=== PATIENT | male | born 2000 | race Caucasian/White ===

== ENCOUNTER 2019-10-06 14:41 | Emergency (ER) | payer MEDICAID, OTHER ==
[~2019-10-06] VITALS: Ht 167.6 cm; Wt 91.8 kg
--- NOTE | 2019-10-06 15:10 | REP ---
Clinical: Chest pain . Comparison: None . Technique: PA and lateral. Findings: The mediastinum and cardiac silhouette are normal. The lung guillen are clear and without acute consolidation, effusion, or pneumothorax. The skeletal structures are intact and normal. Impression: 1. No acute cardiopulmonary process. Electronically Signed by Michael Mckeon MD 10/06/2019 03:01 P
[2019-10-06] MEDS ORDERED: NAPR-837 PO (16:24)
[2019-10-06] MEDS ORDERED: BENZ200C70 PO (16:24)
[2019-10-06 17:21] VITALS: BP 162/83
--- NOTE | 2019-10-06 20:07 | ECGEPIP ---
[facility] - ED Test Date: 2019-10-06 Pat Name: ANUP MEADOWS Department: Room: - Gender: Male Client Care Coordinator: ISAAC : 2000 Requested By: Columba Mcclain Order Number: [id number] Reading MD: Columba Mcclain Measurements Intervals [place] Rate: 76 P: 52 WV: 108 QRS: 69 QRSD: 94 T: 52 QT: 343 QTc: 386 Interpretive Statements SINUS RHYTHM WITH SINUS ARRHYTHMIA WITH SHORT WV INTERVAL NO PRIOR Electronically Signed on 10-06-2019 20:07:16 EST by Columba Mcclain
== END 2019-10-06 17:23 | disposition home or self-care (01) ==
LOC: M ED 14:41
DX: R07.1 Chest pain on breathing (principal); W01.10XA Fall on same level from slipping, tripping and stumbling with subsequent striking against unspecified object, initial encounter; Y92.9 Unspecified place or not applicable; Y93.9 Activity, unspecified; Y99.9 Unspecified external cause status; F17.200 Nicotine dependence, unspecified, uncomplicated

== ENCOUNTER 2020-03-08 13:22 | Emergency (ER) | payer OTHER ==
[~2020-03-08] VITALS: Ht 170.2 cm; Wt 97.3 kg
[~2020-03-08 13:22] MED LIST: BENZ200C70 PO; NAPR-837 PO
[2020-03-08] MEDS ORDERED: ONDA-83 PO (13:28)
[2020-03-08] MEDS ORDERED: MORPHINE 2 MG/ML 1ML VIAL (J2270) IV ONE (14:00)
[2020-03-08] MEDS ORDERED: NS 1,000 ML IV ONE (14:00)
[2020-03-08] MEDS ORDERED: PANTOPRAZOLE 40MG VIAL (C9113 PER 1) IV ONE (14:00)
[2020-03-08] MEDS ORDERED: ONDANSETRON 4MG/2ML VIAL IV ONE ×2 (14:00→18:15)
[2020-03-08 14:05] LABS: BASO % 0.4 % (0.0-1.0); EOS # 0.1 10^3/uL (0.0-0.5); EOS % 0.8 % (0.0-3.0); HEMATOCRIT 49.9 % (42.0-52.0); HEMOGLOBIN 17.6 g/dl (13.5-17.5); LYMPH # 2.2 10^3/uL (1.5-5.0); LYMPH % 23.7 % (24.0-44.0); MEAN CORPUSCULAR HEMOGLOBIN 30.9 pg (27.0-33.0); MEAN CORPUSCULAR HGB CONC 35.3 g/dl (32.0-36.5); MEAN CORPUSCULAR VOLUME 87.5 fl (80.0-96.0); MONO # 0.8 10^3/uL (0.0-0.8); MONO % 9.2 % (0.0-5.0); NEUTROPHILS % 65.7 % (36.0-66.0); PLATELET COUNT, AUTOMATED 309 10^3/uL (150-450); WHITE BLOOD COUNT 9.1 10^3/uL (4.0-10.0)
[2020-03-08] MEDS ORDERED: ISOVUE-370 76% 100ML VIAL As Ordered ONE (14:05)
[2020-03-08 15:02] LABS: ALBUMIN 5.3 GM/DL (3.2-5.2); BILIRUBIN,DIRECT 0.2 MG/DL (0.0-0.2); BILIRUBIN,TOTAL 1.5 MG/DL (0.2-1.0); TOTAL PROTEIN 8.5 GM/DL (6.4-8.2)
[2020-03-08] MEDS ORDERED: CAPSAICIN 0.025% CR 60 GM TOP ONE (15:30)
[2020-03-08] MEDS ORDERED: HALOPERIDOL 5MG/ML VIAL (J1630 PER 1) IV ONE (16:00)
--- NOTE | 2020-03-08 16:16 | REP ---
CT ABDOMEN AND PELVIS WITH IV CONTRAST: TECHNIQUE: Axial contrast enhanced images from the lung bases to the pubic symphysis using 100 mL Isovue-370 intravenous contrast material with multiplanar reformations. Visualized lung bases are clear. The liver demonstrates focal fatty infiltration anteriorly. Otherwise, liver and gallbladder are unremarkable. Spleen is normal in size with no intrinsic abnormality. Adrenal glands are normal. No pancreatic abnormality is seen. Kidneys demonstrate no mass or hydronephrosis. There is no abdominal aortic aneurysm. There is no adenopathy. There is no free air or free fluid. No bowel wall thickening is seen. The appendix is normal. No pelvic mass is seen. Urinary bladder is not well distended and not well evaluated. IMPRESSION: No acute abnormality is detected. Electronically Signed by Winston Farooq MD 03/11/2020 12:04 P
[2020-03-08 17:40] LABS: AMPHETAMINES LEVEL URINE NEGATIVE (NEGATIVE); BARBITURATES URINE NEGATIVE (NEGATIVE); BENZODIAZEPINES URINE NEGATIVE (NEGATIVE); CANNABINOIDS URINE POSITIVE (NEGATIVE); COCAINE METABOLITE URINE NEGATIVE (NEGATIVE); METHADONE URINE NEGATIVE (NEGATIVE); OPIATES URINE POSITIVE (NEGATIVE); PHENCYCLIDINE URINE NEGATIVE (NEGATIVE)
[2020-03-08] MEDS ORDERED: OMEP40CA97 PO (17:55)
[2020-03-08] MEDS ORDERED: PROM25TA12 PO (17:55)
[2020-03-08 18:07] VITALS: BP 150/80
== END 2020-03-08 18:17 | disposition home or self-care (01) ==
LOC: M ED 13:22
DX: R10.9 Unspecified abdominal pain (principal); R11.2 Nausea with vomiting, unspecified; F17.210 Nicotine dependence, cigarettes, uncomplicated
CPT/HCPCS: 74177; 80047; 80076; 80307; 81001; 83690; 85025; 96361; 96374; 96375; 99284; C9113; J1630; J2270; J2405; Q9967

== ENCOUNTER 2023-05-01 17:03 | Emergency (ER) | payer OTHER ==
[~2023-05-01] VITALS: Ht 170.2 cm; Wt 94.8 kg
[~2023-05-01 17:03] MED LIST changes: +OMEP40CA4 PO; +ONDA-83 PO; +PROM25TA12 PO
[2023-05-01 17:04] VITALS: TEMP 98.5
[2023-05-01 18:15] LABS: BASO # 0.1 10^3/uL (0.0-0.2); BASO % 0.6 % (0.0-1.0); EOS # 0.1 10^3/uL (0.0-0.5); EOS % 1.6 % (0.0-3.0); HEMATOCRIT 46.1 % (42.0-52.0); HEMOGLOBIN 15.6 g/dl (13.5-17.5); LYMPH % 22.1 % (24.0-44.0); MEAN CORPUSCULAR HEMOGLOBIN 30.6 pg (27.0-33.0); MEAN CORPUSCULAR HGB CONC 33.8 g/dl (32.0-36.5); MEAN CORPUSCULAR VOLUME 90.6 fl (80.0-96.0); MONO # 0.8 10^3/uL (0.0-0.8); MONO % 8.4 % (2.0-8.0); PLATELET COUNT, AUTOMATED 280 10^3/uL (150-450); RED BLOOD COUNT 5.09 10^6/uL (4.30-6.10)
[2023-05-01 18:37] LABS: LIPASE 156 U/L (12-53)
[2023-05-01 18:39] LABS: ALBUMIN 4.3 G/DL (3.2-5.2); ALKALINE PHOSPHATASE 78 U/L (46-116); ALT/SGPT 64 U/L (7.0-40); AST/SGOT 32 U/L (<34); BILIRUBIN,DIRECT 0.2 MG/DL (<0.4); BILIRUBIN,TOTAL 0.9 MG/DL (0.3-1.2); BLOOD UREA NITROGEN 17 MG/DL (9-23); CALCIUM LEVEL 10.1 MG/DL (8.5-10.1); CARBON DIOXIDE LEVEL 28 MMOL/L (20-31); CHLORIDE LEVEL 102 MMOL/L (98-107); CK-MB VALUE MASS < 1.0 NG/ML (<3.6); CREATININE FOR GFR 0.94 MG/DL (0.70-1.30); GLOMERULAR FILTRATION RATE > 60.0 (>60); GLUCOSE, FASTING 81 MG/DL (60-100); POTASSIUM SERUM 4.1 MMOL/L (3.5-5.1); SODIUM LEVEL 138 MMOL/L (136-145); TOTAL PROTEIN 7.1 G/DL (5.7-8.2)
[2023-05-01 18:40] LABS: THYROID STIMULATING HORMONE 0.755 uIU/ML (0.55-4.78)
[2023-05-01 18:41] LABS: FREE T4 1.23 NG/DL (0.89-1.76)
[2023-05-01 18:44] LABS: CPK CREATINE PHOSPHOKINASE 195 U/L (46-171); MB/CK RELATIVE INDEX 0.51 (< OR =4)
[2023-05-01] MEDS ORDERED: ISOVUE-370 76% 100ML VIAL As Ordered ONE (18:44)
[2023-05-01] MEDS ORDERED: PANTOPRAZOLE 40MG VIAL IV ONE (18:45)
[2023-05-01] MEDS ORDERED: SUCRALFATE 1 GM TAB PO ONE (18:45)
[2023-05-01] MEDS ORDERED: MAALOX 30 ML SUSP *UDC PO ONE (18:45)
[2023-05-01 18:46] VITALS: BP 135/83
[2023-05-01 19:33] VITALS: O2SAT 99
[2023-05-01 19:52] LABS: CK-MB VALUE MASS < 1.0 NG/ML (<3.6)
[2023-05-01 19:53] LABS: CPK CREATINE PHOSPHOKINASE 181 U/L (46-171); MB/CK RELATIVE INDEX 0.55 (< OR =4)
== END 2023-05-01 20:04 | disposition home or self-care (01) ==
LOC: M ED 17:03
DX: R09.1 Pleurisy (principal); F17.200 Nicotine dependence, unspecified, uncomplicated; Z79.899 Other long term (current) drug therapy
CPT/HCPCS: 71045; 71275; 80048; 80076; 82550; 82553; 83690; 83880; 84439; 84443; 85025; 85379; 93005; 93041; 94760; 96374; 99285; C9113; Q9967

== ENCOUNTER 2024-11-03 20:06 | Emergency (ER) | payer OTHER ==
[~2024-11-03] VITALS: Ht 172.7 cm; Wt 96.8 kg
[2024-11-04 00:23] VITALS: BP 144/92; TEMP 97.5; O2SAT 98
[2024-11-04] MEDS ORDERED: NAPR-837 PO (01:01)
[2024-11-04] MEDS: NAPROXEN 250 MG TAB PO ONE (01:27)
== END 2024-11-04 01:31 | disposition home or self-care (01) ==
LOC: M ED 20:06
DX: J02.9 Acute pharyngitis, unspecified (principal)